=== PATIENT | male | born 1980 | race Caucasian/White ===

== ENCOUNTER 2017-08-11 16:56 | Emergency (ER) | payer SELFPAY ==
[2017-08-11 16:57] VITALS: BP 127/85; PULSE 93; RESP 22; TEMP 36.6; O2SAT 96; BMI 23.0
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
[2017-08-11] MEDS: Ibuprofen 400 MG Tablet 800 MG PO (17:29)
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
== END 2017-08-11 18:04 | disposition home or self-care (01) ==
PROVIDERS: Emergency Provider Emergency Medicine
DX: S16.1XXA Strain of muscle, fascia and tendon at neck level, initial encounter (principal); V43.52XA Car driver injured in collision with other type car in traffic accident, initial encounter; Y93.89 Activity, other specified; Y92.9 Unspecified place or not applicable; Z72.0 Tobacco use
CPT/HCPCS: 70450; 72125; 99284

== ENCOUNTER 2017-10-29 20:35 | Emergency (ER) | payer SELFPAY ==
[2017-10-29 20:36] VITALS: BP 124/74; PULSE 98; RESP 16; TEMP 37; O2SAT 95; BMI 23.0
--- NOTE | 2017-10-29 21:11 | ED.DCSUM_ITS ---
- ER Visit Summary Date of Service: 10/29/17 Chief Complaint: Discomfort with urination especially rectal pain History of Present Illness: The patient is a 37 M who presents with no bowel movement for 1 week. He has tried bewe-lzd-yibzkgy preparation with no results. He does complain of discomfort with urination especially in the rectal area. He denies penile discharge. He denies change in color urine or blood in his urine. Denies testicular pain. He denies fever, chills night sweats. He denies myalgias arthralgias. Denies back pain or abdominal pain. He has not noted any blood on the toilet paper. He has not felt any lumps when wiping. Patient is a smoker. He reports productive cough of green colored sputum for approximately 4 weeks. Physical Examination: Vitals are unremarkable. He appears comfortable. Chest descended bilaterally. There is no testicular of the wrist. There is no inguinal lymphadenopathy. No penile lesions. There is no visible hemorrhoids and there is no fissures or fistulas noted. Digital exam is marked for enlarged tender slightly boggy prostate. There is no stool in the rectal vault. Abdomen is soft nontender. There is no CVA tenderness noted. Lungs are clear to auscultation with good air bilaterally. Heart is regular without murmur, gallop or rub. Test Results: None are indicated Emergency Department Course and Treatment: Patient was prescribed and given first dose of doxycycline for respiratory coverage as well as coverage for prostatitis in a 37-year-old male. Treatment Plan: Appropriate home-going instruction and prescription for doxycycline. He was referred to the [facility] since he is presently uninsured. Disposition: Discharged to home with spouse Impression: 1. Prostatitis 2. Purulent bronchitis 3. Tobacco use This note was generated with [employer] dictation software. It may contain incorrect words, spelling, and punctuation that were not noted in review of the chart prior to signing ED Disposition - Plan for ED Patient: Disposition: Home or Assisted Living Chief Complaint: Constipation Instructions: ED Prostatitis, ED Upper Resp Infec Abx Tx Prescriptions: Doxycycline Monohydrate 100 mg PO BID #30 cap Referrals: Care Physician,No Primary [Primary Care Provider] - Nes[facility] Davis [NON-STAFF] - 1 Week if not improving
[2017-10-29] MEDS: oxyCODONE 5 MG Tablet PO ×2 (21:22→21:23)
[2017-10-29] MEDS: Doxycycline 100 MG CAPSULE PO (21:22)
[2017-10-29 21:24] VITALS: PULSE 97; RESP 16; O2SAT 98
== END 2017-10-29 21:25 | disposition home or self-care (01) ==
PROVIDERS: Emergency Provider Emergency Medicine
DX: N41.9 Inflammatory disease of prostate, unspecified (principal); J41.1 Mucopurulent chronic bronchitis; Z72.0 Tobacco use
CPT/HCPCS: 99283

== ENCOUNTER 2018-06-08 19:41 | Emergency (ER) | payer MEDICAID, SELFPAY ==
[2018-06-08 19:42] VITALS: PULSE 105; RESP 22; TEMP 36.8; O2SAT 96; BMI 24.7
[2018-06-08] MEDS: Albuterol 2.5 MG/3 ML VIAL.NEB. INHALATION (20:34)
[2018-06-08 20:35] VITALS: PULSE 87; RESP 14
[2018-06-08 20:44] VITALS: PULSE 90; RESP 17; TEMP 37.4; O2SAT 98
[2018-06-08] MEDS: 0.9% Normal Saline 1,000 ML 999 ML IV (20:56)
[2018-06-08 21:00] VITALS: BP 117/76; PULSE 88; RESP 18; TEMP 37.4; O2SAT 97
--- NOTE | 2018-06-08 21:00 | RAD_ITS ---
STUDY: X-RAY CHEST REASON FOR EXAM: Male, 38 years old. Flulike symptoms beginning Monday. Fever.. Vomiting and dizziness. TECHNIQUE: PA and lateral views of the chest. COMPARISON: June 07, 2017. FINDINGS: The lungs are clear and expanded. There is no demonstrated pleural abnormality. Normal size heart. Normal mediastinum and mary. Normal visualized pulmonary arteries. Normal visualized aortic arch and descending thoracic aorta. Normal visualized thoracic spine. Normal visualized ribs, clavicles, and shoulders. There is no demonstrated abnormality of the visualized soft tissue structures of the upper abdomen. RAD/Chest PA and Lateral IMPRESSION: No acute cardiopulmonary disease or interval change. Electronically Signed: Rafael Head DO at 21:14 EST Tel [phone], Service support ,
--- NOTE | 2018-06-08 21:14 | ED.DCSUM_ITS ---
- ER Visit Summary Date of Service: 06/08/18 Chief Complaint: Cough History of Present Illness: The patient is a 38 M who has had a cough for the past 5 days. Has been nonproductive. He has had nausea with vomiting. He feels weak all over. He is also been having body aches. His temperature at home was 100 ?F. He took DayQuil and TheraFlu without any relief. He did not get a flu shot this year. He does smoke. No history of any lung problems. Physical Examination: Vital signs reviewed. HEENT exam unremarkable. Heart is tachycardic and regular rhythm without murmurs. Lungs slight wheeze on the left-hand side. Abdomen is soft and nontender. Extremities reveal no edema. Skin exam normal. Neurologic exam normal. Test Results: Chest x-ray reveals no acute findings. Influenza testing is negative Emergency Department Course and Treatment: Patient was hydrated with IV fluids. It appears he has a viral illness. He will be treated with albuterol, Mucinex D and Phenergan at home. He will follow-up with his PCP Treatment Plan: [] Disposition: Discharge Impression: Acute viral illness This note was generated with [employer] dictation software. It may contain incorrect words, spelling, and punctuation that were not noted in review of the chart prior to signing ED Disposition - Plan for ED Patient: Chief Complaint: General Illness Referrals: Care Physician,No Primary [Primary Care Provider] -
--- NOTE | 2018-06-08 21:21 | ED.DEP ---
ED Disposition - Plan for ED Patient: Disposition: Home or Assisted Living Chief Complaint: General Illness Instructions: ED URI Viral Prescriptions: Albuterol Inhaler [Ventolin Hfa] 1 - 2 puff INHALATION Q4H PRN PRN #1 inhaler PRN Reason: Wheezing proMETHazine tablet [Phenergan] 25 mg PO Q6H PRN PRN #10 tab PRN Reason: Nausea Guaifenesin/Pseudoephedrne HCl [Mucinex D ER 600-60 mg Tablet] 1 ea PO BID #14 tab.er.[id number] Referrals: Care Physician,No Primary [Primary Care Provider] -
== END 2018-06-08 21:39 | disposition home or self-care (01) ==
PROVIDERS: Emergency Provider Emergency Medicine
DX: B34.9 Viral infection, unspecified (principal); F17.200 Nicotine dependence, unspecified, uncomplicated
CPT/HCPCS: 71046; 87804; 94640; 96360; 99283; J7030; A4216

== ENCOUNTER → 2018-09-12 15:47 | Outpatient (CLI) | payer MEDICAID, SELFPAY | PROVIDERS: Referring Provider Otolaryngology; Visit Provider Otolaryngology | DX: J32.9 Chronic sinusitis, unspecified (principal) | CPT/HCPCS: 87070; 87205 ==

== ENCOUNTER → 2018-10-03 12:19 | Outpatient (CLI) | payer MEDICAID, SELFPAY ==
--- NOTE | 2018-10-03 12:21 | CT_ITS ---
STUDY: CT MAXILLOFACIAL SINUSES REASON FOR EXAM: Male, 38 years old. HX OF SINUS SURGERY, plastic surgery, PT STATED PUS POCKETS ON LEFT SIDE. RADIATION DOSAGE (If Supplied By Facility): CTDIvol = ( 33.06 ) mGy, DLP = ( 821.45 ) mGycm TECHNIQUE: The patient was scanned in a multi detector CT scanner. High resolution axial imaging was performed without the administration of intravenous contrast material. Sagittal and coronal images were reconstructed. Individualized dose optimization techniques were used for this CT. COMPARISON: None. FINDINGS: FRONTAL SINUSES: Normal aeration, without mucosal inflammatory disease. ETHMOIDAL SINUSES: Normal aeration, without mucosal inflammatory disease. MAXILLARY SINUSES: There is mild mucosal thickening of the right maxillary sinus. SPHENOIDAL SINUSES: There is moderate mucosal thickening of the sphenoid sinus There is narrowing of the bilateral maxillary infundibuli with normal uncinate processes, ethmoid bullae, and hiatus semilunaris. Normal bilateral middle turbinates. Normal bilateral inferior turbinates. Normal midline nasal septum. There is patency of the bilateral nasal airways. The visualized osseous structures are normal. The visualized bilateral orbital contents are normal. CT/Sinus/Facial Bone IMPRESSION: Moderate chronic sinus disease. Electronically Signed: Tereso Alvarez MD at 8:43 EDT Tel , Service support ,
== END ==
PROVIDERS: Referring Provider Otolaryngology; Visit Provider Otolaryngology
DX: J32.9 Chronic sinusitis, unspecified (principal)
CPT/HCPCS: 70486